=== PATIENT | male | born 1990 | race Caucasian/White ===

== ENCOUNTER 2017-11-10 07:40 | Emergency (ER) | payer SELFPAY, OTHER, MEDICAID ==
[2017-11-10] MEDS: ACETAMINOPHEN 325 MG TAB PO (08:40)
[2017-11-10] MEDS: MECLIZINE 25 MG TABLET PO (08:40)
[2017-11-10] MEDS: AUGMENTIN 875 MG TAB PO (08:54)
== END 2017-11-10 08:59 | disposition home or self-care (01) ==
LOC: M ED 07:40
DX: J20.9 Acute bronchitis, unspecified (principal); H66.92 Otitis media, unspecified, left ear; J01.90 Acute sinusitis, unspecified
CPT/HCPCS: 71046

== ENCOUNTER 2018-01-23 23:50 | Emergency (ER) | payer MEDICAID, SELFPAY ==
[2018-01-24] MEDS: NS 1,000 ML IV ×2 (01:49)
[2018-01-24 02:04] LABS: BASO # 0.1 10^3/uL (0.0-0.2); BASO % 0.6 % (0.0-1.0); EOS # 0.5 10^3/uL (0.0-0.50); EOS % 4.2 % (0.0-3.0); HEMOGLOBIN 15.4 g/dl (13.5-17.5); IMMATURE GRANULOCYTE % 0.3 % (0-3.0); LYMPH # 3.9 10^3/uL (1.5-6.5); LYMPH % 35.7 % (24.0-44.0); MEAN CORPUSCULAR HEMOGLOBIN 29.8 pg (27.0-33.0); MEAN CORPUSCULAR VOLUME 85.1 fl (80.0-96.0); MONO # 0.9 10^3/uL (0.0-0.8); MONO % 8.4 % (0.0-5.0); NEUTROPHILS # 5.5 10^3/uL (1.8-7.7); NEUTROPHILS % 50.8 % (36.0-66.0); PLATELET COUNT, AUTOMATED 265 10^3/uL (150-450); RED BLOOD COUNT 5.17 10^6/uL (4.30-6.10); RED CELL DISTRIBUTION WIDTH 12.8 % (11.5-14.5); WHITE BLOOD COUNT 10.9 10^3/uL (4.0-10.0)
[2018-01-24 02:07] LABS: APPEARANCE, URINE CLEAR (CLEAR); BACTERIA, URINE AUTO NEGATIVE (NEGATIVE); BILIRUBIN, URINE AUTO NEGATIVE (NEGATIVE); BLOOD, URINE BLOOD NEGATIVE (NEGATIVE); COLOR, URINE YELLOW (YELLOW); GLUCOSE, URINE (UA) AUTO NEGATIVE (NEGATIVE); KETONE, URINE AUTO NEGATIVE (NEGATIVE); LEUKOCYTE ESTERASE, URINE AUTO NEGATIVE (NEGATIVE); MUCUS, URINE SMALL (NEGATIVE); NITRITE, URINE AUTO NEGATIVE (NEGATIVE); PROTEIN, URINE AUTO NEGATIVE (NEGATIVE); RBC, URINE AUTO 1 /HPF (0-3); SQUAMOUS EPITHELIAL CELL UR AU 0 /HPF (0-6); UROBILINOGEN, URINE AUTO 0.2 mg/dL (0.0-2.0); WBC, URINE AUTO 0 /HPF (0-3)
[2018-01-24 02:34] LABS: ALBUMIN 3.9 GM/DL (3.2-5.2); ALBUMIN/GLOBULIN RATIO 1.03 (1.00-1.93); ALKALINE PHOSPHATASE 125 U/L (45-117); ALT/SGPT 206 U/L (12-78); ANION GAP 6 MEQ/L (8-16); AST/SGOT 97 U/L (7-37); BILIRUBIN,DIRECT 0.1 MG/DL (0.0-0.2); BILIRUBIN,TOTAL 0.4 MG/DL (0.2-1.0); BLOOD UREA NITROGEN 15 MG/DL (7-18); CALCIUM LEVEL 8.9 MG/DL (8.5-10.1); CARBON DIOXIDE LEVEL 30 MEQ/L (21-32); CHLORIDE LEVEL 105 MEQ/L (98-107); CREATININE FOR GFR 0.98 MG/DL (0.70-1.30); GLOMERULAR FILTRATION RATE > 60.0 (>60); GLUCOSE, FASTING 117 MG/DL (70-100); POTASSIUM SERUM 4.2 MEQ/L (3.5-5.1); SODIUM LEVEL 141 MEQ/L (136-145); TOTAL PROTEIN 7.7 GM/DL (6.4-8.2)
[2018-01-24] MEDS ORDERED: ISOVUE-370 76% 100ML VIAL (Q9967) As Ordered ×2 (03:01)
[2018-01-24] MEDS: KETOROLAC 30 MG/ML VIAL (J1885) IV ×2 (06:07)
== END 2018-01-24 06:34 | disposition home or self-care (01) ==
LOC: M ED 23:50
DX: G89.29 Other chronic pain (principal); R07.89 Other chest pain; Z87.09 Personal history of other diseases of the respiratory system; Z90.2 Acquired absence of lung [part of]; K57.30 Diverticulosis of large intestine without perforation or abscess without bleeding
CPT/HCPCS: Q9967